=== PATIENT | male | born 1960 | race Caucasian/White ===

== ENCOUNTER 2017-06-24 12:23 | Day surgery (SDC) | END 2017-06-24 16:55 | disposition home or self-care (01) ==

== ENCOUNTER 2018-04-05 11:40 | Day surgery (SDC) | payer OTHER ==
[~2018-04-05] VITALS: Ht 167.6 cm; Wt 77.3 kg
[~2018-04-05 11:40] MED LIST: CALCITROL; FERROUS SULFATE; PENT400T9 PO; PROPRANOLOL; VIT B; VIT D
[2018-04-05 13:07] VITALS: BP 105/62; PULSE 63; RESP 10
[2018-04-05] MEDS ORDERED: PROPOFOL 20 ML ONE (13:42)
--- NOTE | 2018-04-05 14:56 | HPN ---
Date/Time of Note Date/Time of Note DATE: 04/05/18 TIME: 14:56 Interval H&P Admission Note Pt. seen H&P reviewed: No system changes PETE CHEN Apr 05, 2018 14:56
== END 2018-04-05 16:39 | disposition home or self-care (01) ==
LOC: GIL 11:40
PROVIDERS: ATTEND Internal Medicine Gastroenterology
DX: I85.00 Esophageal varices without bleeding (principal); I10 Essential (primary) hypertension; E78.5 Hyperlipidemia, unspecified